=== PATIENT | female | born 1980 | race American Indian/Alaskan Native ===

== ENCOUNTER 2025-01-30 11:48 | Emergency (ER) | payer OTHER, SELFPAY ==
[2025-01-30 11:48] VITALS: BMI 22.9
[2025-01-30 11:54] VITALS: BP 106/70
[2025-01-30 12:00] VITALS: BP 108/74
[2025-01-30 12:19] LABS: Hematocrit 40.6 % (37.0-47.0); Hemoglobin 13.0 g/dL (12.0-16.0); Mean Corp Hgb Conc. 32.0 g/dL (33.0-37.0); Mean Corpuscular Volume 85.8 fL (81.0-99.0); Nucleated Red Blood Cells % 0 %; Platelet Count 310 10^3/uL (130-400); Red Cell Dist. Width 14.5 % (11.5-14.5)
[2025-01-30 12:21] LABS: Urine Character Clear (Clear)
[2025-01-30 13:12] LABS: ALT (SGPT) 16 U/L (0-35); AST (SGOT) 18 U/L (14-36); Albumin 4.1 g/dl (3.5-5.0); Alkaline Phosphatase 61 U/L (38-126); Blood Urea Nitrogen 13 mg/dl (7-17); Calcium 9.2 mg/dl (8.4-10.2); Carbon Dioxide 23 mmol/L (22-30); Chloride 106 mmol/L (98-107); Estimated Creatinine Clearance 95 ml/min; Glucose 176 mg/dl (70-99); Lipase 92 U/L (23-300); Potassium 4.2 mmol/L (3.5-5.1); Sodium 136 mmol/L (135-145); Total Protein 7.0 g/dl (6.3-8.2); eGFR > 60.00
--- NOTE | 2025-01-30 13:39 | ED.GENMED ---
History of Present Illness
General
Chief Complaint: Abdominal Pain
Source: patient
Exam Limitations: none
Time Seen by Provider: 01/30/25 13:29
History of Present Illness
History of Present Illness:
44-year-old female presents complaining of lower abdominal pain for 2 days. Is been intermittent in nature started off relatively suddenly but now has been quite persistent. No nausea or vomiting. No bowel changes. No fevers. No urinary
symptoms. She has had prior C-sections but no other surgeries. The pain does not radiate to the back. No other complaints at this time. History of NIDDM.
Phy Exam
Physical Exam
Physical Exam:
General: Well appearing female NAD
HEENT: NC/AT
Heart: RRR, no murmurs
Lungs: CTA bilaterally
ABd: soft, tender to lower abdominal area
Course
Orders/Labs/Results
Orders:
Orders
01/30/25 11:53
IV Insert/Care/Rem.- Treatment PRN
Straight cath- Treatment ONCE
01/30/25 12:11
Complete Blood Count/With Diff Urgent
Comprehensive Metabolic Panel Urgent
HCG, Serum Qualitative Screen Urgent
Comment: ADD ON
Lipase Urgent
Urinalysis Reflex To Culture Urgent
Date Specimen was Collected: 01/30/25
Time Specimen was Collected: 11:53
01/30/25 13:39
Add On- LAB Urgent
Tests Added?: serum hcg
CT Abd/pelvis W Iv Cont Urgent
Comment:
Reason For Exam: lower abdominal pain
Abnormal Lab Results
01/30/25
12:11
WBC 13.6 H 10^3/uL
(4.8-10.8)
MCHC 32.0 L g/dL
(33.0-37.0)
Absolute Neuts (auto) 11.5 H 10^3/uL
(1.4-6.5)
Neutrophils % 84.8 H %
(42.2-75.2)
Lymphocytes % 10.6 L %
(20.5-51.1)
Glucose 176 H mg/dl
(70-99)
Urine Glucose 4+ A
(Negative)
01/30/25 12:11
01/30/25 12:11
Vital Signs
Initial and Last Documented VS:
Initial Vital Signs
Temp Pulse Resp BP Pulse Ox
98.2 F 77 15 106/70 99
01/30/25 11:54 01/30/25 11:54 01/30/25 11:54 01/30/25 11:54 01/30/25 11:54
Last Documented Vital Signs
Temp Pulse Resp BP Pulse Ox
98.2 F 68 16 108/74 99
01/30/25 11:54 01/30/25 14:00 01/30/25 14:00 01/30/25 12:00 01/30/25 14:00
MDM/Problems Addressed
Differential Diagnosis Includes:
Lower abdominal pain. Consider UTI vs constipation vs diverticulitis, appendicitis, ovarian cyst.
UA negative. WBC is blood is 13.6.
Patient otherwise nontoxic but will consider CT given the white count and the lower abdominal tenderness
*Pulse Oximetry
SaO2: 100
Oxygen Mode of Delivery: Room air
Patient hypoxic: no
*Critical Care Note
Total Time (30-74mins, 75-104mins- exclusive of procedures): Not Applicable
Update Note
Update Note:
Reexamined. Patient still without any abdominal pain abdominal exam is benign upon reassessment. CT is negative. Etiology of patient's abdominal discomfort unclear but reassuring workup. Recommended she follow-up with GI if symptoms persist
ED Attending Note
-
Portions of this chart may have been created with voice recognition software.� Occasional wrong word or��sound alike� substitutions may have occurred due to the inherent limitations of voice recognition software.
Discharge Plan
Departure
Patient Disposition: Home (Routine Discharge)
Date of Disposition: 01/30/25
Time of Disposition: 15:50
Patient with high blood pressure during this ER visit?: No
Discharge Problem:
Abdominal pain
Instructions: Abdominal Pain
Referrals:
UNKNOWN - PT NOT,INTERVIEWE [Family Provider]
Activity Restrictions/Additional Instructions:
Use ibuprofen or Tylenol if needed for pain. Return if worse otherwise follow-up with your GI doctor
Interventions
Interventions:
*General Assessment Last Done: 01/30/25 11:54
*Neglect/Abuse Screening Last Done: 01/30/25 11:54
*ED COVID-19 Vaccine History Last Done: 01/30/25 11:54
*ED Influenza Vaccine History Last Done: 01/30/25 11:54
[facility] Risk Assessment Tool Last Done: 01/30/25 11:48
*Risk Screen - Suicide (C-SSRS) Last Done: 01/30/25 11:54
JD-Ljtrga-Weaylbhgxm Assessment Last Done: 01/30/25 12:43
Discharge Date and Time
Print Language: BAHAMIAN
[2025-01-30 14:22] LABS: HCG, Serum Qualitative Screen Negative
== END 2025-01-30 15:52 | disposition home or self-care (01) ==
LOC: EMR 11:48
PROVIDERS: EMERGENCY PHYSICIAN Student in an Organized Health Care Education/Training Program
DX: R10.30 Lower abdominal pain, unspecified (principal); E11.9 Type 2 diabetes mellitus without complications
CPT/HCPCS: 99285; 74177; 80053; 81003; 83690; 84703; 85025; Q9967